=== PATIENT | male | born 1965 | race Caucasian/White ===

== ENCOUNTER 2017-04-25 06:31 | Day surgery (SDC) | payer BC ==
[2017-04-25] VITALS (8 sets, daily range): BP systolic 113–143; BP diastolic 69–85
[~2017-04-25] VITALS: Ht 177.8 cm; Wt 79.8 kg
[~2017-04-25 06:31] MED LIST: ASPIR 8181 MG ORAL; ATORVASTATIN CA40 MG ORAL; DIOVAN80 MG ORAL
--- NOTE | 2017-04-25 06:38 | Anethesia Preoperative Eval ---
Anesthesia Pre-op PMH/ROS General Date of Evaluation: Apr 25, 2017 Time of Evaluation: 06:35 Anesthesiologist: daev ASA Score: ASA 3 Mallampati Score Class I : Soft palate, uvula, fauces, pillars visible Class II: Soft palate, uvula, fauces visible Class III: Soft palate, base of uvula visible Class IV: Only hard plate visible Mallampati Classification: Class II Surgeon: phyllis Diagnosis: colon polyps Surgical Procedure: colonoscopy Anesthesia History: none Social History: smoking Family History: no anesthesia problems Allergies: Coded Allergies: PENICILLINS (Verified Allergy, Severe, rashes ALL OVER THE BODY, 04/25/17) Medications: see eMAR Past Medical History Cardiovascular: Reports: HTN, other - vascular stent, hypercholesterolemia Gastrointestinal/Genitourinary: Reports: other Musculoskeletal/Integumentary: Reports: OA, other - bilateral knee sx Anesthesia Pre-op Phys. Exam Physician Exam Constitutional: NAD Neurologic: CN 2-12 intact Cardiovascular: RRR Respiratory: CTA Gastrointestinal: S/NT/ND Airway Exam Mallampati Score: Class II MO: full Neck: supple TMD: 2fb ROM: full Anesthesia Pre-op A/P Risk Assessment & Plan Assessment: asa3 Plan: mac Status Change Before Surgery: No Pre-Antibiotics Drug: MASSIEL Randolph Apr 25, 2017 06:38
[2017-04-25] MEDS ORDERED: LR 1000ml 1,000 ML IVLG SCH ×2 (06:48→07:30)
[2017-04-25] MEDS ORDERED: METFORMIN HCL500 M5 PO (06:57)
[2017-04-25] MEDS ORDERED: LINZESS72 MCG PO (06:57)
[2017-04-25] MEDS ORDERED: LR 1000ml ONE (07:00)
[2017-04-25] MEDS ORDERED: Lidocaine 1% MPF 10mg/ml 5ml ONE (07:00)
[2017-04-25] MEDS ORDERED: Propofol 200mg/20ml IV ONE (07:00)
--- NOTE | 2017-04-25 07:22 | Short Stay Surgery H&P ---
History of Present Illness History of Present Illness Chief Complaint see H&P HPI Omid Barlow is a 52 year old male who was admitted on for Colon Polyps Patient History Allergies: Coded Allergies: PENICILLINS (Verified Allergy, Severe, rashes ALL OVER THE BODY, 04/25/17) PAST MEDICAL HISTORY: Past Surgeries: Social History: Medication History Scheduled Aspirin* (Aspir 81*), 81 MG ORAL DAILY, (Reported) Atorvastatin Calcium* (Atorvastatin Calcium*), 40 MG ORAL BEDTIME, (Reported) Linaclotide (Linzess), 72 MCG PO DAILY, (Reported) Metformin HCl (Metformin HCl ER), 500 MG PO DAILY, (Reported) Valsartan (Diovan), 80 MG ORAL DAILY, (Reported) Physical Exam Vital Signs Last Vital Signs Date Time Temp Pulse Resp B/P (MAP) Pulse Ox O2 Delivery O2 Flow Rate FiO2 04/25/17 06:55 97.1 61 17 143/85 99 Room Air Plan Attestation Are the patient's medical conditions optimized for surgery? TRA FREEMAN Apr 25, 2017 07:22
--- NOTE | 2017-04-25 07:22 | Pre-Procedure Note/Attestation ---
Pre-Procedure Note/Attestation Complete Prior to Procedure Planned Procedure: not applicable Procedure Narrative: colon Indications for Procedure Pre-Operative Diagnosis: h/o polyp Attestation I attest that I discussed the nature of the procedure; its benefits; risks and complications; and alternatives (and the risks and benefits of such alternatives ), prior to the procedure, with the patient (or the patient's legal insurance sales representative). I attest that, if there was a reasonable possibility of needing a blood transfusion, the patient (or the patient's legal insurance sales representative) was given the [facility] standardized written summary, pursuant to the Edmarco Judson Blood Safety Act ([place] Health and Safety Code # 1645, as amended). I attest that I re-evaluated the patient just prior to the surgery and that there has been no change in the patient's H&P, except as documented below: TRA FREEMAN Apr 25, 2017 07:22
[2017-04-25] MEDS ORDERED: fentaNYL 100 mcg/2 mL IV PRN (07:30)
[2017-04-25] MEDS ORDERED: Midazolam 2mg/2ml Inj IVP PRN (07:30)
[2017-04-25] MEDS ORDERED: Atropine Inj 1mg/10ml Syr IV PRN (07:30)
[2017-04-25] MEDS ORDERED: DiphenhydrAMINE 50mg/ml Inj IVP PRN (07:30)
--- NOTE | 2017-04-25 07:53 | Brief Operative Note ---
Immediate Post Operative Note Operative Note Chief Complaint: h/o polyp Pre-op Diagnosis: h/o polyp Post-op Diagnosis: melanosis Surgeon: phyllis Anesthesiologist: see report Anesthesia: MAC Specimen: none Complications: none Condition: stable Fluids: see report Estimated Blood Loss: none Drains: none Implant(s) used?: No TRA FREEMAN Apr 25, 2017 07:53
--- NOTE | 2017-04-25 07:53 | Endoscopy Procedure Note ---
Endoscopy Procedure Note Indication for Procedure: h/o polyp Procedures Performed: colonoscopy Operative Findings/Diagnosis: melanosis Specimen: none Pt Tolerated Procedure Well: Yes Estimated Blood Loss: none Anesthesiologist: shannan Anesthesia: MAC Medication Given: see anesthesia record Implant(s) used?: No 50 yrs or older w/o bx or poly: Yes 10yrs. F/U not recommended: Yes If not recommended, why?: 10 yrs. F/U needed: Yes 18 years or older w/prev. colo: Yes <3yrs. since last colonoscopy: Yes Med reason:<3 yrs.: Inadequate Prep System Reason:<3 yrs.: Last colonoscopy >= to 3yrs: No TRA FREEMAN Apr 25, 2017 07:53
--- NOTE | 2017-04-25 09:43 | Immediate Post-Op Evaluation ---
Immediate Post-Op Evalulation Immediate Post-Op Evalulation Procedure: colonoscopy Date of Evaluation: Apr 25, 2017 Time of Evaluation: 08:02 IV Fluids: 300ml lr Blood Products: none Estimated Blood Loss: negligible Blood Pressure Systolic: 117 Blood Pressure Diastolic: 71 Pulse Rate: 56 Respiratory Rate: 18 O2 Sat by Pulse Oximetry: 100 Temperature (Fahrenheit): 98.0 Pain Score (1-10): 0 Nausea: No Vomiting: No Complications none Patient Status: awake, reacts, patent Hydration Status: adequate Drug: MASSIEL Randolph Apr 25, 2017 09:43
--- NOTE | 2017-04-25 09:44 | 48 Hour Post Anesthesia Eval ---
Post Anesthesia Evaluation Procedure: colonoscopy Date of Evaluation: Apr 25, 2017 Time of Evaluation: 08:04 Blood Pressure Systolic: 113 0: 74 Pulse Rate: 55 Respiratory Rate: 18 Temperature (Fahrenheit): 98.0 O2 Sat by Pulse Oximetry: 99 Airway: patent Nausea: No Vomiting: No Pain Intensity: 0 Hydration Status: adequate Cardiopulmonary Status: stable Mental Status/LOC: patient returned to baseline Post-Anesthesia Complications: none Follow-up care needed: N/A MASSIEL STANFORD Apr 25, 2017 09:44
--- NOTE | 2017-04-25 17:00 | Procedure Note ---
DATE OF PROCEDURE: 04/25/2017 GASTROENTEROLOGY PROCEDURE REPORT PROCEDURE: Colonoscopy. SURGEON: Kasey Porter M.D. ANESTHESIA: Please see the separate anesthesiologist notes for details. PRE-ENDOSCOPIC DIAGNOSIS: History of colonic polyp. POST-ENDOSCOPIC DIAGNOSES: 1. Diffuse melanosis throughout the colon. 2. No evidence of polyps identified. DESCRIPTION OF PROCEDURE: The procedure, its risks, indications, alternatives, and possible complications were explained to the patient. An informed consent was obtained. The patient was then sedated in the left lateral decubitus position and a rectal exam was done. The colonoscope was then introduced in the rectum and advanced to the terminal ileum for about 10 cm. The colonoscope was then gradually withdrawn and the mucosa was examined carefully. Examination of the colonic mucosa revealed normal terminal ileum, but there was diffuse melanosis coli throughout the colon. There were no polyps or masses identified. Retroflexed view of the rectum was unremarkable. The colonoscope was removed and the patient was sent to recovery in good condition. COMPLICATIONS: None. RECOMMENDATIONS: 1. Continue current bowel regimen using a combination of Linzess and stool softeners. 2. Follow up with primary care physician. Thank you for asking me to participate in the care of this patient. Kasey Porter M.D. DR: ADELINA JOB#: [id number] CC: Harshad Mckeon M.D.
== END 2017-04-25 08:50 | disposition home or self-care (01) ==
LOC: GAS 06:31
DX: K63.89 Other specified diseases of intestine (principal); Z86.010 Personal history of colon polyps; I10 Essential (primary) hypertension; E78.00 Pure hypercholesterolemia, unspecified; M19.90 Unspecified osteoarthritis, unspecified site; Z88.0 Allergy status to penicillin; F17.200 Nicotine dependence, unspecified, uncomplicated; Z79.82 Long term (current) use of aspirin; Z79.84 Long term (current) use of oral hypoglycemic drugs
CPT/HCPCS: 45378; 82962; J2704; J7120; 94003; 94150